=== PATIENT | male | born 1940 | race African-American/Black ===

== ENCOUNTER 2018-06-30 08:13 | Emergency (ER) | payer MEDICARE ==
[~2018-06-30] VITALS: Ht 180.3 cm; Wt 90.0 kg
[2018-06-30] MEDS ORDERED: TAMS0.4C31 PO (08:18)
[2018-06-30] MEDS ORDERED: ATOR10TA69 PO (08:18)
[2018-06-30] MEDS ORDERED: AMLO2.5T45 PO (08:18)
[2018-06-30] MEDS ORDERED: CLOP75TA33 PO (08:18)
[2018-06-30 09:25] LABS: BASOPHILS % 0.6 % (0.0-2.0); EOSINOPHILS % 0.3 % (0.0-5.0); HEMATOCRIT. 31.6 % (42.0-52.0); HEMOGLOBIN. 9.7 g/dL (14.0-18.0); MEAN CORPUSCULAR HEMOGLOBIN 23.5 pg (28.0-32.0); MEAN CORPUSCULAR VOLUME 76.7 fL (80.0-94.0); MONOCYTES % 10.1 % (2.0-8.0); PLATELET 282 x1000/uL (130-400); RED BLOOD CELL COUNT 4.12 mill/uL (4.7-6.1); RED CELL DISTRIBUTION WIDTH 16.7 % (11.6-14.6)
[2018-06-30 09:27] LABS: CHLORIDE 108 mEq/L (98-107)
[2018-06-30 11:00] VITALS: BP 131/79
== END 2018-06-30 11:20 | disposition home or self-care (01) ==
LOC: ER 08:13
DX: R07.89 Other chest pain (principal); I10 Essential (primary) hypertension; Z86.73 Personal history of transient ischemic attack (TIA), and cerebral infarction without residual deficits; Z79.899 Other long term (current) drug therapy
CPT/HCPCS: 36415; 71045; 80053; 84484; 85025; 93005; 99285